=== PATIENT | female | born 1960 | race Caucasian/White ===

== ENCOUNTER 2016-06-23 08:36 | Emergency (ER) | payer MEDICARE, OTHER ==
[~2016-06-23] VITALS: Ht 165.1 cm; Wt 75.0 kg
[~2016-06-23 08:36] MED LIST: ALPR0.5T99 PO; AMBI10TA PO; BACT800T5 PO; BUSP5 PO; LATU40TA PO; NAPR40TA PO; PARO40TA PO; TOPA200T4 PO
[2016-06-23 08:40] VITALS: BP 133/77; PULSE 82; RESP 18; TEMP 97.5; O2SAT 99
== END 2016-06-23 09:55 | disposition left against medical advice (07) ==
LOC: NEPB 08:36
DX: Z53.21 Procedure and treatment not carried out due to patient leaving prior to being seen by health care provider (principal)
CPT/HCPCS: 99281

== ENCOUNTER 2016-11-09 23:32 | Emergency (ER) | payer MEDICARE, OTHER ==
[~2016-11-09] VITALS: Ht 165.1 cm; Wt 75.0 kg
[2016-11-09 23:35] VITALS: BP 141/70; PULSE 65; RESP 16; TEMP 98.4; O2SAT 99
--- NOTE | 2016-11-10 00:35 | PD ---
HPI Chief Complaint: Lump, Cyst, Hernia Time Seen by Provider: 00:12 Travel History International Travel<30 days: No Contact w/Intl Traveler<30days: No Traveled to known affect area: No History of Present Illness HPI 56-year-old female noticed a nonpainful lump on the left arm and increasing pain in the left forearm. Patient has history of compartment syndrome status post surgery on the left forearm in the past. Patient noticed soft tissue lump around the antecubital area of the left arm this evening. Patient states that she has occasionally aching pain in her left arm this evening also. Patient denies any recent injury. Patient denies any fever chills. PFSH Past Medical History Arthritis: No Autoimmune Disease: No Bipolar Disorder: Yes (Schizoaffective Disorder) Anxiety: Yes (PTSD) Heart Rhythm Problems: No Cancer: No Cardiovascular Problems: Yes High Cholesterol: Yes Chest Pain: No Congestive Heart Failure: No Cerebrovascular Accident: No Diabetes: No Diminished Hearing: No Endocrine: Yes Gastrointestinal Disorders: Yes GERD: No Genitourinary: No Headaches: Yes Hiatal Hernia: No Hypertension: Yes Immune Disorder: No Musculoskeletal: Yes Neurologic: Yes Psychiatric: Yes (Schizoaffective DO; Hx Bipolar, Hx MPD per pt./ OCD) Respiratory: Yes (BRONCHITIS) Migraines: Yes Schizophrenia: Yes (Schizoaffective Disorder) Seizures: No Ulcer: No ?: Not Menopausal: Yes : 5 Para: 3 Miscarriage: 2 : 0 Dilation and Curettage (D&C): Yes Tubal Ligation: Yes Past Surgical History Abdominal Surgery: Yes (APPENDECTOMY) Appendectomy: Yes (1973) Gynecologic Surgery: Yes (HYSTERECTOMY) Hysterectomy: Yes Pacemaker: No Other Surgery: Yes Social History Alcohol Use: No Tobacco Use: Yes (1 ppd) Substance Use: No Allergies-Medications (Allergen,Severity, Reaction): Coded Allergies: Demerol (Verified Allergy, Severe, 02/10/16) Percocet (Verified Allergy, Severe, Rash, 02/10/16) Reported Meds & Prescriptions Reported Meds & Active Scripts Active Naproxen Sodium 550 Mg Tab 550 Mg PO BID Reported Bactrim DS (Sulfamethoxazole-Trimethoprim DS) 1 Tab Tab 1 Tab PO BID Latuda (Lurasidone HCl) 40 Mg Tab 40 Mg PO DAILY Buspar 5 Mg Tab (Buspirone HCl) 5 Mg Tab 5 Mg PO TID Topamax (Topiramate) 200 Mg Tab 200 Mg PO BID Xanax (Alprazolam) 0.5 Mg Tab 0.5 Mg PO QID Ambien (Zolpidem Tartrate) 10 Mg Tab 10 Mg PO HS Paxil (Paroxetine HCl) 40 Mg Tab 40 Mg PO HS Review of Systems General / Constitutional: No: Fever Eyes: No: Visual changes HENT: No: Headaches Cardiovascular: No: Chest Pain or Discomfort Respiratory: No: Shortness of Breath Gastrointestinal: No: Abdominal Pain Genitourinary: No: Dysuria Musculoskeletal: No: Pain Skin: No Rash Neurologic: No: Weakness Psychiatric: No: Depression Endocrine: No: Polydipsia Hematologic/Lymphatic: No: Easy Bruising Physical Exam Narrative GENERAL: Well-nourished, well-developed patient. SKIN: Focused skin assessment warm/dry. HEAD: Normocephalic. EYES: No scleral icterus. No injection or drainage. NECK: Supple, trachea midline. No JVD or lymphadenopathy. CARDIOVASCULAR: Regular rate and rhythm without murmurs, gallops, or rubs. RESPIRATORY: Breath sounds equal bilaterally. No accessory muscle use. GASTROINTESTINAL: Abdomen soft, non-tender, nondistended. MUSCULOSKELETAL: No cyanosis, or edema. BACK: Nontender without obvious deformity. No CVA tenderness. Examination the left arm reveals well-healed scars on the left forearm. No redness no heat noted. No tenderness on palpation on the left forearm. Good radial pulses. Good capillary refill distally. No redness no heat no evidence of induration noted on the left arm. Full range of motion of the left arm. Data Data Last Documented VS Vital Signs Date Time Temp Pulse Resp B/P Pulse Ox O2 Delivery O2 Flow Rate FiO2 11/09/16 23:35 98.4 65 16 141/70 99 Room Air MDM Medical Decision Making Medical Screen Exam Complete: Yes Emergency Medical Condition: Yes Differential Diagnosis Differential diagnosis in including strain, cellulitis, compartment syndrome, phlebitis Narrative Course 56-year-old female with left arm pain and soft tissue lumps. Examination is benign. No evidence of acute process. Diagnosis Primary Impression: Muscle strain of forearm Qualified Code: S56.912A - Muscle strain of forearm, left, initial encounter Patient Instructions: General Instructions Additional Instructions: Tylenol and Advil for pain. Follow-up with personal physician. Return if worse. Med/Other Pt SpecificInfo: No Change to Meds Disposition: 01 DISCHARGE HOME Condition: Stable Kelvin Ybarra MD Nov 10, 2016 00:35
== END 2016-11-10 00:39 | disposition home or self-care (01) ==
LOC: NEPD 23:32
DX: S56.912A Strain of unspecified muscles, fascia and tendons at forearm level, left arm, initial encounter (principal); F43.10 Post-traumatic stress disorder, unspecified; F25.9 Schizoaffective disorder, unspecified; E78.00 Pure hypercholesterolemia, unspecified; I10 Essential (primary) hypertension; F17.200 Nicotine dependence, unspecified, uncomplicated; Z79.899 Other long term (current) drug therapy; Z88.5 Allergy status to narcotic agent; X58.XXXA Exposure to other specified factors, initial encounter
CPT/HCPCS: 99282